=== PATIENT | male | born 1970 | race Caucasian/White ===

== ENCOUNTER 2025-03-25 11:01 | Emergency (ER) | payer BC ==
[~2025-03-25] VITALS: Ht 180.3 cm; Wt 95.1 kg
[2025-03-25] MEDS ORDERED: LOSA50TA28 (11:18)
[2025-03-25] MEDS: FLUORESCEIN OPHTH 1 MG STRIP OD ONE (11:35)
[2025-03-25] MEDS: PROPARACAINE 0.5% OPHTH SOL 15ML OD ONE (11:35)
[2025-03-25] MEDS ORDERED: CIPR0.3S37 OD (12:24)
[2025-03-25] MEDS: TETANUS/DIPHTH/ACEL. PERTUSSIS 0.5 ML SYR IM.IMMUN ONE (12:27)
[2025-03-25 12:28] VITALS: BP 133/98; TEMP 98.7; O2SAT 98
== END 2025-03-25 12:35 | disposition home or self-care (01) ==
LOC: M ED 11:01
DX: T15.01XA Foreign body in cornea, right eye, initial encounter (principal); Z23 Encounter for immunization; Z79.2 Long term (current) use of antibiotics; Z79.899 Other long term (current) drug therapy